=== PATIENT | female | born 1985 | race Caucasian/White ===

== ENCOUNTER 2016-10-11 11:25 | Emergency (ER) | payer OTHER ==
[~2016-10-11] VITALS: Ht 160 cm; Wt 93.0 kg
[~2016-10-11 11:25] MED LIST: AMIT50TA PO; GABA400C PO; LAMO100T5 PO; LAMO25TA5 PO; MECL25TA3 PO; METH4TAB2 PO; NAPR500T3 PO; PRED20TA PO; PREG100C PO; PROM12.56 PO; PROP40TA PO; SUMA1TAB2 PO; VALA500T5 PO
[2016-10-11] MEDS ORDERED: methylPREDNISolone SOD SUCC PF 125 MG/2 ML VIAL. IV ONE (12:30)
[2016-10-11] MEDS ORDERED: DIPHENHYDRAMINE 50 MG/ML VIAL IVP ONE (12:30)
[2016-10-11] MEDS ORDERED: FAMOTIDINE 20 MG/2 ML VIAL IVP ONE (12:30)
--- NOTE | 2016-10-11 13:03 | PHYS DOC ---
Past Medical History Past Medical History: Anxiety, Depression, Endometriosis Additional Past Medical Histor: "very mild case of CP", insomnia, endometriosis Past Surgical History: , Oophorectomy, Tubal ligation Additional Past Surgical Histo: extensions of heal cords, lap. for endometriosis, L. overy/tube removal Alcohol Use: None Drug Use: None Adult General Chief Complaint Chief Complaint: ALLERGIC REACTION HPI HPI Patient is a 31 year old female presents emergency room with multiple complaints secondary to taking Cymbalta. Patient began taking Cymbalta 3 days ago. She states that she has been experiencing numbness to her tongue, blurry vision, rash that she began taking the medication. She denies any airway closure or difficulty breathing. Patient states that she takes for Cymbalta for her depression. She states that she had a similar reaction with Zoloft and lavender. Patient did not take any Benadryl prior to being seen here. Review of Systems Review of Systems Constitutional: Denies fever or chills [] Eyes: Denies change in visual acuity, redness, or eye pain [] HENT: Denies nasal congestion or sore throat [] Respiratory: Denies cough or shortness of breath [] Cardiovascular: No additional information not addressed in HPI [] GI: Denies abdominal pain, nausea, vomiting, bloody stools or diarrhea [] : Denies dysuria or hematuria [] Musculoskeletal: Denies back pain or joint pain [] Integument: Denies rash or skin lesions [] Neurologic: Denies headache, focal weakness or sensory changes [] Endocrine: Denies polyuria or polydipsia [] Current Medications Current Medications Current Medications Medications (Trade) Dose Ordered Sig/Patria Start Time Stop Time Status Last Admin Dose Admin Diphenhydramine HCl (Benadryl) 25 mg 1X ONCE 10/11/16 12:30 10/11/16 12:31 DC 10/11/16 12:39 25 MG Famotidine (Pepcid) 20 mg 1X ONCE 10/11/16 12:30 10/11/16 12:31 DC 10/11/16 12:39 20 MG Methylprednisolone Sodium Succinate (Solu-Medrol 125mg Vial) 125 mg 1X ONCE 10/11/16 12:30 10/11/16 12:31 DC 10/11/16 12:39 125 MG Allergies Allergies Allergies Coded Allergies Type Severity Reaction Last Updated Verified Penicillins Allergy Intermediate hives 06/09/15 Yes azithromycin Allergy Intermediate hives 06/09/15 Yes lavender (Lavandula angustifolia) Allergy Intermediate sob 06/09/15 Yes progesterone Adverse Reaction Intermediate nausea and vomiting 06/09/15 Yes Physical Exam Physical Exam Constitutional: Well developed, well nourished, no acute distress, non-toxic appearance. [] HENT: Normocephalic, atraumatic, bilateral external ears normal, oropharynx moist, no oral exudates, nose normal. There is no angioedema. There is no swelling in the posterior oropharynx. Eyes: PERRLA, EOMI, conjunctiva normal, no discharge. [] Neck: Normal range of motion, no tenderness, supple, no stridor. Cardiovascular:Heart rate regular rhythm, no murmur [] Lungs & Thorax: Bilateral breath sounds clear to auscultation [] Abdomen: Bowel sounds normal, soft, no tenderness, no masses, no pulsatile masses. [] Skin: Warm, dry, no erythema, no rash. Malar rash. Back: No tenderness, no CVA tenderness. [] Extremities: No tenderness, no cyanosis, no clubbing, ROM intact, no edema. [] Neurologic: Alert and oriented X 3, normal motor function, normal sensory function, no focal deficits noted. [] Psychologic: Affect normal, judgement normal, mood normal. [] Current Patient Data Vital Signs Vital Signs Date Time Temp Pulse Resp B/P Pulse Ox O2 Delivery O2 Flow Rate FiO2 10/11/16 13:40 70 20 118/67 70 10/11/16 11:30 98.3 Room Air 98.3 EKG EKG [] Radiology/Procedures Radiology/Procedures [] Course & Med Decision Making Course & Med Decision Making Patient's had an uncomplicated stay here in the emergency department. There is never any evidence of angioedema. She is not expressing any shortness of breath. She is having an adverse reaction to the medication and not allergic reaction. Dragon Disclaimer Dragon Disclaimer This electronic medical record was generated, in whole or in part, using a voice recognition dictation system. Departure Departure Impression: Primary Impression: Adverse reaction to antidepressant drug Disposition: HOME, SELF-CARE Condition: IMPROVED Referrals: FAUSTINO LIANG APRN (PCP) Patient Instructions: Dystonic Reaction Additional Instructions: 1. You have any medication side effect and not an allergic reaction. 2. Stop taking the medication. There will be a period of time when the side effects will gradually resolve altogether. 3. Follow-up with your primary care doctor this coming week to discuss your visit to the emergency room here today. KAT PIRES Oct 11, 2016 13:03
[2016-10-11 13:40] VITALS: BP 118/67
== END 2016-10-11 14:02 | disposition home or self-care (01) ==
LOC: ER 11:25
DX: T43.295A Adverse effect of other antidepressants, initial encounter (principal); L25.8 Unspecified contact dermatitis due to other agents; R20.0 Anesthesia of skin; H53.8 Other visual disturbances; G47.00 Insomnia, unspecified; Z88.0 Allergy status to penicillin; Z88.1 Allergy status to other antibiotic agents; Z88.8 Allergy status to other drugs, medicaments and biological substances; Y92.89 Other specified places as the place of occurrence of the external cause
CPT/HCPCS: 96374; 96375; 99284; J1200; J2930; S0028

== ENCOUNTER 2016-12-20 12:54 | Emergency (ER) | payer MEDICAID, OTHER ==
[~2016-12-20] VITALS: Ht 160 cm; Wt 96.6 kg
[2016-12-20 13:19] LABS: BILIRUBIN,URINE NEGATIVE (NEG); GLUCOSE,URINE NEGATIVE (NEG); NITRITE,URINE NEGATIVE (NEG); PH,URINE 6.5; PROTEIN,URINE NEGATIVE (NEG-TRACE)
[2016-12-20 13:28] LABS: BACTERIA,URINE 0 /HPF (0-FEW); RBC,URINE TNTC /HPF (0-2); SQUAMOUS EPITHELIAL CELL,UR MOD /LPF; WBC,URINE 20-40 /HPF (0-4)
[2016-12-20] MEDS ORDERED: diphenhydrAMINE 50 MG/ML VIAL IVP ONE (13:45)
[2016-12-20] MEDS ORDERED: DEXAMETHASONE SOD PHOS 20 MG/5 ML VIAL. IV ONE (13:45)
[2016-12-20] MEDS ORDERED: KETOROLAC TROMETHAMINE 30 MG/ML INJ. IV ONE (13:45)
[2016-12-20] MEDS ORDERED: IV NORMAL SALINE 1000ML BAG 1,000 ML IV ONE (13:45)
[2016-12-20] MEDS ORDERED: METOCLOPRAMIDE HCL 10 MG/2 ML VIAL. IV ONE (13:45)
--- NOTE | 2016-12-20 14:31 | PHYS DOC ---
Past Medical History Past Medical History: Anxiety, Depression, Endometriosis, Migraines Additional Past Medical Histor: "very mild case of CP", insomnia, endometriosis Past Surgical History: , Oophorectomy, Tubal ligation Additional Past Surgical Histo: extensions of heal cords, lap. for endometriosis, L. overy/tube removal Alcohol Use: None Drug Use: None Adult General Chief Complaint Chief Complaint: HEADACHE HPI HPI This is a 31-year-old female who's had 2-3 days of progressively worsening headache with associated photo phobia and nausea with no vomiting. Patient denies any fever or chills. She states her current pain is a 9 out of 10 and is somewhat generalized. She denies any significant neck tenderness and she does describe some scapular and trapezius tenderness but states this is likely work related. She is fully alert and oriented at this time. She is afebrile and nontoxic upon my initial evaluation. She states she has history of migraine headaches but has not had one this severe for 6 years. Patient started her menstrual cycle yesterday. She denies any significant past medical history. Review of Systems Review of Systems Constitutional: Denies fever or chills [] Eyes: Denies change in visual acuity, redness, or eye pain [] HENT: Denies nasal congestion or sore throat [] Respiratory: Denies cough or shortness of breath [] Cardiovascular: No additional information not addressed in HPI [] GI: Denies abdominal pain, nausea, vomiting, bloody stools or diarrhea [] : Denies dysuria or hematuria [] Musculoskeletal: Denies back pain or joint pain [] Integument: Denies rash or skin lesions [] Neurologic: Has headache, denies focal weakness or sensory changes [] Endocrine: Denies polyuria or polydipsia [] Current Medications Current Medications Current Medications Medications (Trade) Dose Ordered Sig/Patria Start Time Stop Time Status Last Admin Dose Admin Dexamethasone Sodium Phosphate (Decadron) 10 mg 1X ONCE 12/20/16 13:45 12/20/16 13:49 DC 12/20/16 14:06 10 MG Diphenhydramine HCl (Benadryl) 25 mg 1X ONCE 12/20/16 13:45 12/20/16 13:49 DC 12/20/16 14:07 25 MG Ketorolac Tromethamine (Toradol) 30 mg 1X ONCE 12/20/16 13:45 12/20/16 13:49 DC 12/20/16 14:04 30 MG Metoclopramide HCl (Reglan) 10 mg 1X ONCE 12/20/16 13:45 12/20/16 13:49 DC 12/20/16 14:05 10 MG Sodium Chloride 1,000 ml @ 1,000 mls/hr 1X ONCE 12/20/16 13:45 12/20/16 14:44 DC 12/20/16 14:04 1,000 MLS/HR Allergies Allergies Allergies Coded Allergies Type Severity Reaction Last Updated Verified Penicillins Allergy Intermediate hives 06/09/15 Yes azithromycin Allergy Intermediate hives 06/09/15 Yes lavender (Lavandula angustifolia) Allergy Intermediate sob 06/09/15 Yes progesterone Adverse Reaction Intermediate nausea and vomiting 06/09/15 Yes Physical Exam Physical Exam Constitutional: Well developed, well nourished, no acute distress, non-toxic appearance. [] HENT: Normocephalic, atraumatic, bilateral external ears normal, oropharynx moist, no oral exudates, nose normal. [] Eyes: PERRLA, EOMI, conjunctiva normal, no discharge. [] Neck: Normal range of motion, no tenderness, supple, no stridor. [] Cardiovascular:Heart rate regular rhythm, no murmur [] Lungs & Thorax: Bilateral breath sounds clear to auscultation [] Abdomen: Bowel sounds normal, soft, no tenderness, no masses, no pulsatile masses. [] Skin: Warm, dry, no erythema, no rash. [] Back: No tenderness, no CVA tenderness. [] Extremities: No tenderness, no cyanosis, no clubbing, ROM intact, no edema. [] Neurologic: Alert and oriented X 3, normal motor function, normal sensory function, no focal deficits noted. [] Psychologic: Affect normal, judgement normal, mood normal. [] Current Patient Data Vital Signs Vital Signs Date Time Temp Pulse Resp B/P (MAP) Pulse Ox O2 Delivery O2 Flow Rate FiO2 12/20/16 14:55 85 16 115/65 (82) 99 Room Air 12/20/16 13:05 98.1 98.1 Lab Values Laboratory Tests Test 12/20/16 12:16 12/20/16 13:09 POC Urine HCG, Qualitative Hcg negative (Negative) Urine Collection Type Unknown Urine Color Yellow Urine Clarity Clear Urine pH 6.5 Urine Specific [place] 1.020 Urine Protein Negative mg/dL (NEG-TRACE) Urine Glucose (UA) Negative mg/dL (NEG) Urine Ketones (Stick) Negative mg/dL (NEG) Urine Blood Large (NEG) Urine Nitrite Negative (NEG) Urine Bilirubin Negative (NEG) Urine Urobilinogen Dipstick 1.0 mg/dL (0.2 mg/dL) Urine Leukocyte Esterase Moderate (NEG) Urine RBC Tntc /HPF (0-2) Urine WBC 20-40 /HPF (0-4) Urine Squamous Epithelial Cells Mod /LPF Urine Bacteria 0 /HPF (0-FEW) EKG EKG [] Radiology/Procedures Radiology/Procedures [] Course & Med Decision Making Course & Med Decision Making Pertinent Labs and Imaging studies reviewed. (See chart for details) This 31-year-old female is exhibiting symptoms of migraine type headache that she's had before. She denies any sudden onset of headache. She says the intensity has gradually worsened the last several days despite taking Tylenol and Motrin. Patient does not have any signs of systemic illness. Typical migraine cocktail of IV Toradol, IV Reglan, IV Benadryl, IV Decadron and a fluid bolus will be given and the patient will be reassessed. On my reassessment , the patient's and has mildly improved with traditional migraine cocktail. The patient feels improved and would like to go home and rest for the next 24 hours. Return precautions were provided and the patient is to return if her headache should not improve or if she develops any new symptoms such as fever or worsening nausea or vomiting or changes in her behavior. Patient is very agreeable with this plan and discharged without incident. Dragon Disclaimer Dragon Disclaimer This electronic medical record was generated, in whole or in part, using a voice recognition dictation system. Departure Departure Impression: Primary Impression: Headache Disposition: 01 HOME, SELF-CARE Admitting Physician: Other Condition: IMPROVED Referrals: FAUSTINO LIANG APRN (PCP) Patient Instructions: Migraine Headache, [id number] Additional Instructions: Please continue to drink plenty of fluids and get rest for the next 24 hours. Take tylenol or motrin for your pain. Return to the ER if you develop any worsening of your symptoms. CARA VALERO DO December 20, 2016 14:31
[2016-12-20 14:55] VITALS: BP 115/65
== END 2016-12-20 14:57 | disposition home or self-care (01) ==
LOC: ER 12:54
DX: R51 Headache (principal); G43.909 Migraine, unspecified, not intractable, without status migrainosus; F32.9 Major depressive disorder, single episode, unspecified; F41.9 Anxiety disorder, unspecified; G47.00 Insomnia, unspecified; Z88.0 Allergy status to penicillin; Z88.1 Allergy status to other antibiotic agents; Z88.8 Allergy status to other drugs, medicaments and biological substances; Z91.048 Other nonmedicinal substance allergy status
CPT/HCPCS: 81001; 84703; 87086; 96361; 96374; 96375; 99284; J1100; J1200; J1885; J2765; J7030; 81025; 87186

== ENCOUNTER 2017-01-15 21:19 | Emergency (ER) | payer MEDICAID, OTHER ==
[~2017-01-15] VITALS: Ht 160 cm; Wt 95.3 kg
[2017-01-15] MEDS ORDERED: diphenhydrAMINE 50 MG/ML VIAL IVP ONE (22:00)
[2017-01-15] MEDS ORDERED: DEXAMETHASONE SOD PHOS 20 MG/5 ML VIAL. IV ONE (22:00)
[2017-01-15] MEDS ORDERED: PROCHLORPERAZINE 10 MG/2 ML VIAL. IV ONE (22:00)
[2017-01-15] MEDS ORDERED: KETOROLAC TROMETHAMINE 30 MG/ML INJ. IV ONE (22:00)
--- NOTE | 2017-01-15 22:01 | PHYS DOC ---
Past Medical History Past Medical History: Anxiety, Depression, Endometriosis, Migraines Additional Past Medical Histor: "very mild case of CP", insomnia, endometriosis Past Surgical History: , Oophorectomy, Tubal ligation Additional Past Surgical Histo: extensions of heal cords, lap. for endometriosis, L. ovary/tube removal Alcohol Use: None Drug Use: None Adult General Chief Complaint Chief Complaint: HEADACHE HPI HPI Patient is a 31 year old female who presents with gradual onset headache, mostly on the left, associated with photophobia and phonophobia and nausea. States headache symptoms are similar to prior migraine symptoms. States she does have some pressure in bilateral ears, greater on the left than the right. She also has loose diarrhea today. She denies vision changes, neck pain or manipulation, numbness, tingling, weakness, abdominal pain, fever or chills, emesis, chest pain, back pain. Review of Systems Review of Systems Constitutional: Denies fever or chills [] Eyes: Denies change in visual acuity, redness, or eye pain [] HENT: Denies nasal congestion or sore throat [] Respiratory: Denies cough or shortness of breath [] Cardiovascular: No additional information not addressed in HPI [] GI: Denies abdominal pain, nausea, vomiting, bloody stools [] : Denies dysuria or hematuria [] Musculoskeletal: Denies back pain or joint pain [] Integument: Denies rash or skin lesions [] Neurologic: Denies focal weakness or sensory changes [] Endocrine: Denies polyuria or polydipsia [] Current Medications Current Medications Current Medications Medications (Trade) Dose Ordered Sig/[facility] Start Time Stop Time Status Last Admin Dose Admin Dexamethasone Sodium Phosphate (Decadron) 10 mg 1X ONCE 01/15/17 22:00 01/15/17 22:01 DC 01/15/17 21:59 10 MG Diphenhydramine HCl (Benadryl) 25 mg 1X ONCE 01/15/17 22:00 01/15/17 22:01 DC 01/15/17 22:02 25 MG Ketorolac Tromethamine (Toradol) 10 mg 1X ONCE 01/15/17 22:00 01/15/17 22:01 DC 01/15/17 22:00 10 MG Prochlorperazine Edisylate (Compazine) 10 mg 1X ONCE 01/15/17 22:00 01/15/17 22:01 DC 01/15/17 22:03 10 MG Allergies Allergies Allergies Coded Allergies Type Severity Reaction Last Updated Verified Penicillins Allergy Intermediate hives 06/09/15 Yes azithromycin Allergy Intermediate hives 06/09/15 Yes lavender (Lavandula angustifolia) Allergy Intermediate sob 06/09/15 Yes progesterone Adverse Reaction Intermediate nausea and vomiting 06/09/15 Yes Physical Exam Physical Exam Constitutional: Well developed, well nourished, no acute distress, non-toxic appearance. [] HENT: Normocephalic, atraumatic, bilateral TMs normal, oropharynx moist, no oral exudates, nose normal. [] Eyes: PERRLA, EOMI, conjunctiva normal, no discharge. [] Neck: Normal range of motion, no tenderness, supple. [] Cardiovascular:Heart rate regular rhythm [] Lungs & Thorax: Bilateral breath sounds clear to auscultation [] Abdomen: Bowel sounds normal, soft, no tenderness. [] Skin: Warm, dry, no erythema, no rash. [] Back: Normal range of motion. [] Extremities: No tenderness, ROM intact, no edema. [] Neurologic: Alert and oriented X 3, normal motor function, normal sensory function, no focal deficits noted, cranial nerves II through XII intact. [] Psychologic: Affect normal, judgement normal, mood normal. [] Current Patient Data Vital Signs Vital Signs Date Time Temp Pulse Resp B/P (MAP) Pulse Ox O2 Delivery O2 Flow Rate FiO2 01/15/17 21:48 98.1 89 18 139/72 (94) 99 Room Air 98.1 Course & Med Decision Making Course & Med Decision Making She is feeling much better after medications. Will refer to neurology for increased frequency of headache/migraine symptoms. Return precautions given. She understands and agrees with plan. Dragon Disclaimer Dragon Disclaimer This electronic medical record was generated, in whole or in part, using a voice recognition dictation system. Departure Departure Impression: Primary Impression: Headache Disposition: 01 HOME, SELF-CARE Condition: STABLE Referrals: FAUSTINO LIANG APRN (PCP) PIEDAD RAMIREZ MD Patient Instructions: Recurrent Migraine Headache, [id number] Additional Instructions: Follow-up with your primary care doctor and neurology clinic. Please call for appointments. Return for any concerns. Problem Qualifiers Primary Impression: Headache Headache type: unspecified Headache chronicity pattern: episodic headache Intractability: not intractable Qualified Codes: R51 - Headache Simón BERUMEN MD January 15, 2017 22:01
[2017-01-15 23:00] VITALS: BP 109/55
== END 2017-01-15 23:10 | disposition home or self-care (01) ==
LOC: ER 21:19
DX: R51 Headache (principal); H53.149 Visual discomfort, unspecified; R11.0 Nausea; F41.9 Anxiety disorder, unspecified; F32.9 Major depressive disorder, single episode, unspecified; G43.909 Migraine, unspecified, not intractable, without status migrainosus; G47.00 Insomnia, unspecified; Z90.721 Acquired absence of ovaries, unilateral; Z98.51 Tubal ligation status; Z88.1 Allergy status to other antibiotic agents; Z88.0 Allergy status to penicillin; Z88.8 Allergy status to other drugs, medicaments and biological substances
CPT/HCPCS: 96374; 96375; 99284; J0780; J1100; J1200; J1885

== ENCOUNTER → 2017-03-17 | Outpatient (CLI) | payer OTHER ==
[~2017-03-17] MED LIST changes: +ESCITALOPRAM OX10 MG PO; +GADOBUTROL 10 MMOL/10 ML VIAL IV ONE; +SUMA100T4 PO
--- NOTE | 2017-03-17 11:13 | KCIC ---
INDICATION: Migraines. History of myelitis. Numbness. TECHNIQUE: Sagittal T1, axial T1, axial T2, axial FLAIR, axial T2 gradient, diffusion imaging with ADC map, postcontrast axial, and postcontrast coronal sequences are provided. 9 mL of intravenous Gadavist was administered without complication. No comparison MRI brain is available. FINDINGS: The ventricles and sulci are within normal limits for age. There is no acute intracranial hemorrhage or extra-axial fluid collection. There is no mass effect or midline shift. There is no white matter signal abnormality. There is no restricted diffusion to suggest an acute infarct. Cervical medullary junction is unremarkable. Pituitary and suprasellar region are unremarkable. Clival marrow signal is preserved. Intracranial flow voids are preserved. There is pansinus mucosal thickening. There is an air-fluid level in the left maxillary sinus. Mastoid air cells are opacified. IMPRESSION: No acute intracranial findings. Electronically signed by: Jim Neff MD (03/17/2017 11:09 AM) [id number]
--- NOTE | 2017-03-17 11:18 | KCIC ---
INDICATION: Migraines. History of myelitis. TECHNIQUE: Sagittal T1, sagittal T2, sagittal STIR, sagittal postcontrast, axial T1, axial T2, axial T2 gradient, and axial postcontrast sequences are provided. A single dose of 9 mL of intravenous Gadavist was administered without complication. Comparison study is from August 03, 2013. FINDINGS: Current study is mildly degraded by motion. The subtle signal abnormality in the cervical cord at C2 probably persists. No signal abnormality within the remainder of the cervical cord is apparent. There is no cord expansion or thinning. There is no pathologic enhancement within the cord. Cervicomedullary junction is unremarkable. There is no malalignment. There is no marrow edema. There is no worrisome marrow lesion. There is no high-grade canal or foraminal compromise at any level. There is minimal degenerative disc disease at C5-C6 and C6-C7. IMPRESSION: 1. Subtle cord hyperintensity at C2 probably is unchanged allowing for motion. No new signal abnormality within the cervical cord is identified. Small area of myelomalacia is a possibility. 3. No high-grade canal or foraminal compromise at any level. Electronically signed by: Jim Neff MD (03/17/2017 11:14 AM) [id number]
== END | disposition home or self-care (01) ==
LOC: KCIC MRI 08:57
PROVIDERS: ATTEND Psychiatry & Neurology Neurology with Special Qualifications in Child Neurology
DX: G43.009 Migraine without aura, not intractable, without status migrainosus (principal); Z86.69 Personal history of other diseases of the nervous system and sense organs; R07.9 Chest pain, unspecified; R20.0 Anesthesia of skin
CPT/HCPCS: 70553; 72156; A9585

== ENCOUNTER → 2017-03-19 | Outpatient (CLI) | payer OTHER ==
[~2017-03-19] MED LIST changes: -GADOBUTROL 10 MMOL/10 ML VIAL IV ONE
--- NOTE | 2017-03-19 13:16 | KCIC ---
EXT NON VASC RIGHT, ULTRASOUND SOFT TISSUE RIGHT KNEE Clinical Indication: Right knee pain x4-5 months. Comparison: None. TECHNIQUE: Real-time ultrasound imaging in the region of the right knee is performed. Findings: There is normal compressibility and color flow and augmentation of the right popliteal vein. The right lesser saphenous vein is patent. No fluid collection in the popliteal fossa is identified. There is a sliver of fluid lateral and anterior to the knee measuring 31 x 4 x 15 mm. IMPRESSION: There is no Ramsay's cyst. Electronically signed by: Gualberto Tracy MD (03/19/2017 1:13 PM) [id number]
== END | disposition home or self-care (01) ==
LOC: KCIC US 12:19
PROVIDERS: ATTEND Nurse Practitioner Family
DX: M25.561 Pain in right knee (principal)
CPT/HCPCS: 76881

== ENCOUNTER 2017-04-22 12:09 | Emergency (ER) | payer OTHER ==
[~2017-04-22] VITALS: Ht 160 cm; Wt 88.5 kg
[2017-04-22 14:00] VITALS: BP 159/103
--- NOTE | 2017-04-22 14:53 | RAD ---
Right shoulder, 3 views, 04/22/2017: History: Fall, injury No fracture or dislocation is identified. The periarticular soft tissues are unremarkable. IMPRESSION: No significant right shoulder abnormality is detected. Right wrist, 3 views, 04/22/2017: No fracture or dislocation is identified. There is mild subcutaneous edema. IMPRESSION: No acute bony abnormality is detected.
--- NOTE | 2017-04-22 14:57 | RAD ---
CT of the head without contrast, 04/22/2017: History: Fall, head injury, pain The ventricles are within normal limits in size. There is no shift of the midline structures. There is no evidence of acute intracranial hemorrhage or mass effect. There is mild mucosal thickening in the right maxillary and ethmoid sinuses and to a greater degree in the right frontal sinus. There is partial opacification of the mastoid sinuses, worse on the right. More extensive inflammatory changes were present in the paranasal and mastoid sinuses on the MR study of 03/17/2017. IMPRESSION: No acute intracranial abnormality is detected. PQRS Compliance Statement: One or more of the following individualized dose reduction techniques were utilized for this examination: 1. Automated exposure control 2. Adjustment of the mA and/or kV according to patient size 3. Use of iterative reconstruction technique
--- NOTE | 2017-04-22 15:05 | PHYS DOC ---
Past Medical History Past Medical History: Anxiety, Depression, Endometriosis, Migraines Additional Past Medical Histor: "very mild case of CP", insomnia, endometriosis Past Surgical History: , Oophorectomy, Tubal ligation, Other Additional Past Surgical Histo: extensions of heal cords, lap. for endometriosis, L. ovary/tube removal Alcohol Use: None Drug Use: None Adult General Chief Complaint Chief Complaint: MECHANICAL FALL HPI HPI Patient is a 31 year old female presents to the emergency department stating that she was trying to get some ice on the refrigerator when she went to move back there was a child her child was underneath her feet and she fell backwards. She states that she tried to grab a hold of the freezer although something broke in the freezer and she still fell backwards hitting her head on a table. Patient is unsure if she had any LOC. Patient states she is having right shoulder pain and right wrist pain. Patient is right hand dominant. Review of Systems Review of Systems Constitutional: Denies fever or chills [] Eyes: Denies change in visual acuity, redness, or eye pain [] HENT: Denies nasal congestion or sore throat [] Respiratory: Denies cough or shortness of breath [] Cardiovascular: No additional information not addressed in HPI [] GI: Denies abdominal pain, nausea, vomiting, bloody stools or diarrhea [] : Denies dysuria or hematuria [] Musculoskeletal: back pain. Right shoulder and right wrist pain. Integument: Denies rash or skin lesions [] Neurologic: headache, deniesfocal weakness or sensory changes [] Endocrine: Denies polyuria or polydipsia [] Current Medications Current Medications Current Medications Medications (Trade) Dose Ordered Sig/[facility] Start Time Stop Time Status Last Admin Dose Admin Cyclobenzaprine HCl (Flexeril) 10 mg 1X ONCE 04/22/17 15:15 04/22/17 15:16 Ibuprofen (Motrin) 800 mg 1X ONCE 04/22/17 15:15 04/22/17 15:16 Allergies Allergies Allergies Coded Allergies Type Severity Reaction Last Updated Verified Penicillins Allergy Intermediate hives 06/09/15 Yes azithromycin Allergy Intermediate hives 06/09/15 Yes lavender (Lavandula angustifolia) Allergy Intermediate sob 06/09/15 Yes progesterone Adverse Reaction Intermediate nausea and vomiting 06/09/15 Yes Physical Exam Physical Exam Constitutional: Well developed, well nourished, no acute distress, non-toxic appearance. [] HENT: Normocephalic, atraumatic, bilateral external ears normal, oropharynx moist, no oral exudates, nose normal. [] Eyes: PERRLA, EOMI, conjunctiva normal, no discharge. [] Neck: Normal range of motion, no tenderness, supple, no stridor. [] Cardiovascular:Heart rate regular rhythm, no murmur [] Lungs & Thorax: Bilateral breath sounds clear to auscultation [] Skin: Warm, dry, no erythema, no rash. [] Back: No cervical spine, thoracic or lumbar spine tenderness, no crepitus, no deformity, no step-offs noted. Extremities: Right shoulder and right wrist tenderness, decrease ROM of the right shoulder. No cyanosis, no clubbing, ROM intact, no edema. [] Neurologic: Alert and oriented X 3, normal motor function, normal sensory function, no focal deficits noted. [] Psychologic: Affect normal, judgement normal, mood normal. [] Current Patient Data Vital Signs Vital Signs Date Time Temp Pulse Resp B/P (MAP) Pulse Ox O2 Delivery O2 Flow Rate FiO2 04/22/17 14:00 98.3 68 18 100 Room Air 98.3 Lab Values Laboratory Tests Test 04/22/17 13:46 POC Urine HCG, Qualitative Hcg negative (Negative) EKG EKG [] Radiology/Procedures Radiology/Procedures [][facility] [address] [place] [address] IMAGING REPORT Signed PATIENT: DARREL GRANDE ACCOUNT: [id number] : 1985 LOCATION: ER AGE: 31 SEX: F EXAM STATUS: REG ER ORD. PHYSICIAN: BARRIE METCALF APRN REASON: fall PROCEDURE: CT HEAD WO CONTRAST CT of the head without contrast, 04/22/2017: History: Fall, head injury, pain The ventricles are within normal limits in size. There is no shift of the midline structures. There is no evidence of acute intracranial hemorrhage or mass effect. There is mild mucosal thickening in the right maxillary and ethmoid sinuses and to a greater degree in the right frontal sinus. There is partial opacification of the mastoid sinuses, worse on the right. More extensive inflammatory changes were present in the paranasal and mastoid sinuses on the MR study of 03/17/2017. IMPRESSION: No acute intracranial abnormality is detected. PQRS Compliance Statement: One or more of the following individualized dose reduction techniques were utilized for this examination: 1. Automated exposure control 2. Adjustment of the mA and/or kV according to patient size 3. Use of iterative reconstruction technique DICTATED and SIGNED BY: JAMARCUS ALATORRE MD DATE: 04/22/17 8263 CC: BARRIE METCALF APRN; NON,STAFF; FAUSTINO LIANG APRN ~ [facility] [address] [place], [place] [id number] IMAGING REPORT Signed PATIENT: DARREL GRANDE ACCOUNT: [id number] : 1985 LOCATION: ER AGE: 31 SEX: F EXAM [id number] STATUS: REG ER ORD. PHYSICIAN: BARRIE METCALF APRN REASON: fall PROCEDURE: SHOULDER 2+V RIGHT; WRIST 3V RIGHT Right shoulder, 3 views, 04/22/2017: History: Fall, injury No fracture or dislocation is identified. The periarticular soft tissues are unremarkable. IMPRESSION: No significant right shoulder abnormality is detected. Right wrist, 3 views, 04/22/2017: No fracture or dislocation is identified. There is mild subcutaneous edema. IMPRESSION: No acute bony abnormality is detected. DICTATED and SIGNED BY: JAMARCUS ALATORRE MD DATE: 04/22/17 1441 CC: BARRIE METCALF APRN; NON,STAFF; FAUSTINO LIANG APRN ~ Course & Med Decision Making Course & Med Decision Making Pertinent Labs and Imaging studies reviewed. (See chart for details) CT scan negative, x-ray of the right shoulder, right wrist are negative for any bony abnormalities. Patient was provided with ibuprofen and Flexeril here in the emergency department. Recommended ice packs on 20 minutes several times today patient will be placed in a sling with recommendations to follow-up with orthopedic within the next week. Recommended the Flexeril at home she was instructed this medication will cause drowsiness do not take any be alert and oriented. Signs and symptoms to return back to emergency department been provided. Patient agrees with discharge instructions, treatment regimens and follow-up recommendations. All questions and concerns been answered at patient' s bedside. [] Dragon Disclaimer Dragon Disclaimer This electronic medical record was generated, in whole or in part, using a voice recognition dictation system. Departure Departure Impression: Primary Impression: Fall Additional Impressions: Closed head injury Right shoulder pain Right wrist pain Disposition: HOME, SELF-CARE Condition: STABLE Referrals: FAUSTINO LIANG APRN (PCP) CHIP RENE MD Patient Instructions: Arm Sling Use-Brief, Fall Prevention and Home Safety, [id number], Head Injury, Adult, [id number], Shoulder Sprain, Wrist Pain, [id number] Additional Instructions: Your x-rays were negative for any bony abnormalities. Your CT scan was negative as well. Ibuprofen 800 mg every 8 hours. Flexeril will cause drowsiness do not take any be alert and oriented. Ice packs on 20 minutes off 20 minutes several times a day. Follow-up with orthopedic within the next week. Return back to emergency department sign symptoms of become worse. Scripts Cyclobenzaprine Hcl (CYCLOBENZAPRINE HCL) 10 Mg Tablet 1 TAB PO TID Y for MUSCLE SPASMS, #30 TAB Prov: BARRIE METCALF APRN 04/22/17 Problem Qualifiers Primary Impression: Fall Encounter type: initial encounter Qualified Codes: W19.XXXA - Unspecified fall, initial encounter Additional Impressions: Closed head injury Encounter type: initial encounter Qualified Codes: S09.90XA - Unspecified injury of head, initial encounter Right shoulder pain Chronicity: acute Qualified Codes: M25.511 - Pain in right shoulder BARRIE METCALF APRN Apr 22, 2017 15:05
[2017-04-22] MEDS ORDERED: CYCLOBENZAPRINE 10 MG TABLET. PO ONE (15:15)
[2017-04-22] MEDS ORDERED: IBUPROFEN 800 MG TABLET. PO ONE (15:15)
[2017-04-22] MEDS ORDERED: CYCL10TA2 PO (15:23)
== END 2017-04-22 15:31 | disposition home or self-care (01) ==
LOC: ER 12:09
DX: S09.90XA Unspecified injury of head, initial encounter (principal); M25.511 Pain in right shoulder; M25.531 Pain in right wrist; G43.909 Migraine, unspecified, not intractable, without status migrainosus; Z88.0 Allergy status to penicillin; Z88.1 Allergy status to other antibiotic agents; Z88.8 Allergy status to other drugs, medicaments and biological substances; W18.39XA Other fall on same level, initial encounter; Y93.89 Activity, other specified; Y99.8 Other external cause status; Y92.89 Other specified places as the place of occurrence of the external cause
CPT/HCPCS: 70450; 73030; 73110; 81025; 99284-25

== ENCOUNTER 2017-06-03 18:26 | Emergency (ER) | payer OTHER ==
[~2017-06-03 18:26] MED LIST changes: +CYCL10TA2 PO; -NAPR500T3 PO; +NAPR500T4 PO
[2017-06-03] MEDS ORDERED: KETOROLAC 30 MG/ML INJ. IV ONE (19:30)
--- NOTE | 2017-06-03 19:35 | PHYS DOC ---
Past Medical History Past Medical History: Anxiety, Depression, Endometriosis, Migraines Additional Past Medical Histor: "very mild case of CP", insomnia, endometriosis Past Surgical History: , Oophorectomy, Tubal ligation, Other Additional Past Surgical Histo: extensions of heal cords, lap. for endometriosis, L. ovary/tube removal Alcohol Use: None Drug Use: None Adult General Chief Complaint Chief Complaint: ALLERGIC REACTION HPI HPI Patient is a 31 year old F who presents with chest pain. Patient was seen yesterday at [facility] for allergic reaction a lavender in which she started having chest pain, tongue swelling, difficulty breathing, difficult swallowing. Patient was treated last night with prednisone, Benadryl, Pepcid and discharged home with prednisone and Pepcid and Bentyl to take Benadryl 3 times a day. Today the patient states she's having worsening chest pain that is central rating to her back. Patient has no history or risk factors for PE. Patient has no cardiac history. Patient has no family history of connective tissue disorders that would put her at risk for aortic dissection. Patient denies any fevers. Patient states the chest pain is worse when she stands up and is not related to exertion. Pt has some patient has some associated shortness of breath with this. Patient has no other complaints. Review of Systems Review of Systems GEN: Denies fevers, chills, sweats HEENT: Denies blurred vision, sore throat CV: Chest pain RESP: Shortness of breath GI: Denies n/v/d NEURO: Denies confusion, dizziness MSK: Denies weakness, joint pain/swelling Current Medications Current Medications Current Medications Medications (Trade) Dose Ordered Sig/[facility] Start Time Stop Time Status Last Admin Dose Admin Fentanyl Citrate (Fentanyl 2ml Vial) 50 mcg 1X ONCE 06/03/17 20:45 06/03/17 20:46 DC 06/03/17 20:46 50 MCG Ketorolac Tromethamine (Toradol) 30 mg 1X ONCE 06/03/17 19:30 06/03/17 19:32 DC 06/03/17 19:59 30 MG Multi-Ingredient Mouthwash/Gargle (Gi Cocktail Single Dose) 15 ml 1X ONCE 06/03/17 20:45 06/03/17 20:46 DC 06/03/17 20:49 15 ML Allergies Allergies Allergies Coded Allergies Type Severity Reaction Last Updated Verified Penicillins Allergy Intermediate hives 06/09/15 Yes azithromycin Allergy Intermediate hives 06/09/15 Yes lavender (Lavandula angustifolia) Allergy Intermediate sob 06/09/15 Yes progesterone Adverse Reaction Intermediate nausea and vomiting 06/09/15 Yes Physical Exam Physical Exam GEN.: Mild distress. Alert and oriented. HEENT: Head is normocephalic, atraumatic NECK: Supple. LUNGS: CTAB. HEART: RRR, S1, S2 present. Peripheral pulses intact ABDOMEN: Soft, nontender. Positive bowel sounds. EXTREMITIES: Without any cyanosis. NEUROLOGIC: Normal speech, normal tone PSYCHIATRIC: Normal affect, normal mood. SKIN: No ulcerations Current Patient Data Vital Signs Vital Signs Date Time Temp Pulse Resp B/P (MAP) Pulse Ox O2 Delivery O2 Flow Rate FiO2 06/03/17 20:25 72 117/86 (96) 98 06/03/17 18:47 98.7 18 Room Air 98.7 Lab Values Laboratory Tests Test 06/03/17 19:30 06/03/17 19:40 06/03/17 19:43 White Blood Count 15.0 x10^3/uL (4.0-11.0) H Red Blood Count 4.52 x10^6/uL (3.50-5.40) Hemoglobin 11.2 g/dL (12.0-15.5) L Hematocrit 34.2 % (36.0-47.0) L Mean Corpuscular Volume 76 fL (79-100) L Mean Corpuscular Hemoglobin 25 pg (25-35) Mean Corpuscular Hemoglobin Concent 33 g/dL (31-37) Red Cell Distribution Width 15.5 % (11.5-14.5) H Platelet Count 477 x10^3/uL (140-400) H Neutrophils (%) (Auto) 81 % (31-73) H Lymphocytes (%) (Auto) 13 % (24-48) L Monocytes (%) (Auto) 6 % (0-9) Eosinophils (%) (Auto) 0 % (0-3) Basophils (%) (Auto) 0 % (0-3) Neutrophils # (Auto) 12.0 x10^3uL (1.8-7.7) H Lymphocytes # (Auto) 2.0 x10^3/uL (1.0-4.8) Monocytes # (Auto) 1.0 x10^3/uL (0.0-1.1) Eosinophils # (Auto) 0.0 x10^3/uL (0.0-0.7) Basophils # (Auto) 0.0 x10^3/uL (0.0-0.2) D-Dimer (Nat) < 0.27 ug/mlFEU Sodium Level 140 mmol/L (136-145) Potassium Level 4.2 mmol/L (3.5-5.1) Chloride Level 104 mmol/L (98-107) Carbon Dioxide Level 26 mmol/L (21-32) Anion Gap 10 (6-14) Blood Urea Nitrogen 11 mg/dL (7-20) Creatinine 0.7 mg/dL (0.6-1.0) Estimated GFR (Cockcroft-Gault) 97.0 BUN/Creatinine Ratio 16 (6-20) Glucose Level 99 mg/dL (70-99) Calcium Level 9.6 mg/dL (8.5-10.1) Total Bilirubin 0.1 mg/dL (0.2-1.0) L Aspartate Amino Transferase (AST) 9 U/L (15-37) L Alanine Aminotransferase (ALT) 18 U/L (14-59) Alkaline Phosphatase 94 U/L (46-116) Troponin I Quantitative < 0.017 ng/mL (0.000-0.055) Total Protein 7.8 g/dL (6.4-8.2) Albumin 3.9 g/dL (3.4-5.0) Albumin/Globulin Ratio 1.0 (1.0-1.7) Urine Collection Type Unknown Urine Color Red Urine Clarity Turbid Urine pH 5.5 Urine Specific [place] >=1.030 Urine Protein 100 mg/dL (NEG-TRACE) Urine Glucose (UA) Negative mg/dL (NEG) Urine Ketones (Stick) Trace mg/dL (NEG) Urine Blood Large (NEG) Urine Nitrite Positive (NEG) Urine Bilirubin Moderate (NEG) Urine Urobilinogen Dipstick 0.2 mg/dL (0.2 mg/dL) Urine Leukocyte Esterase Moderate (NEG) Urine RBC Tntc /HPF (0-2) Urine WBC 5-10 /HPF (0-4) Urine Squamous Epithelial Cells Few /LPF Urine Bacteria Moderate /HPF (0-FEW) POC Urine HCG, Qualitative Hcg negative (Negative) Laboratory Tests 06/03/17 19:30 Laboratory Tests 06/03/17 19:30 EKG EKG 1839: EKG shows normal sinus rhythm rate of 84 no STEMI[] Radiology/Procedures Radiology/Procedures [] Course & Med Decision Making Course & Med Decision Making Pertinent Labs and Imaging studies reviewed. (See chart for details) ED course: Patient was seen and examined emergency room cardiac workup was ordered with a d -dimer, I do not feel the patient is having persistent allergic reaction symptoms warranting further epinephrine or prednisone administration at this time. The patient's chief complaint is chest pain and work her up for the chest pain at this time. 2038: Updated patient on lab results and x-ray findings. Patient still having some central chest pain and will redosed with fentanyl 50 g and a GI cocktail. 2127: On reevaluation the patient's pain is a 3/10 and she is ready to go home. Patient does not want to stay to obtain a CT scan of the chest is comfortable being discharged with follow-up with her PCP. MDM: After reviewing the chart, CC/HPI/PMH, physical exam, [lab results], [ radiological results], I do not believe the patient having acute VT (HEART score =0), PE, and have low suspicion for acute thoracic aortic dissection. On reexamination the patient's chest pain is improved and she is wanted to go home. Recommended short-term follow-up with PCP in the next one to 2 days. I believe the patient is low cardiac risk and can be discharged home with outpatient cardiac workup. Patient showing no signs of worsening of her allergic reaction or signs of anaphylaxis at this time. Recommended patient continue taking her prednisone as previously prescribed. Patient does have a UTI on her UA and will go ahead and treat her for it however do not believe this is causing her chest pain. Additional verbal discharge instructions were provided to the patient and that if symptoms get worse or any new symptoms arise that are worrisome to the patient she is to return to the emergency room immediately [] Dragon Disclaimer Dragon Disclaimer This electronic medical record was generated, in whole or in part, using a voice recognition dictation system. Departure Departure Impression: Primary Impression: Chest pain Additional Impression: UTI (urinary tract infection) Disposition: 01 HOME, SELF-CARE Condition: IMPROVED Referrals: FAUSTINO LIANG APRN (PCP) Patient Instructions: Chest Pain (Nonspecific)-Brief, Urinary Tract Infection, [id number] Additional Instructions: Please follow up with your family physician in the next one to 2 days and return if symptoms increase Scripts Sulfamethoxazole/Trimethoprim (BACTRIM DS TABLET) 1 Each Tablet 1 TAB PO BID for 5 Days, #10 TAB Prov: MIGUELITO AVILA DO 06/03/17 Problem Qualifiers MIGUELITO AVILA DO Jun 03, 2017 19:35
[2017-06-03 19:55] LABS: BILIRUBIN,URINE MODERATE (NEG); GLUCOSE,URINE NEGATIVE (NEG); NITRITE,URINE POSITIVE (NEG); PH,URINE 5.5; PROTEIN,URINE 100 mg/dL (NEG-TRACE); UROBILINOGEN,URINE 0.2 mg/dL (0.2 mg/dL)
[2017-06-03 19:57] LABS: BASO % 0 % (0-3); EOS % 0 % (0-3); HEMATOCRIT 34.2 % (36.0-47.0); HEMOGLOBIN 11.2 g/dL (12.0-15.5); LYMPH % 13 % (24-48); MEAN CORPUSCULAR HEMOGLOBIN 25 pg (25-35); MEAN CORPUSCULAR HGB CONC 33 g/dL (31-37); MEAN CORPUSCULAR VOLUME 76 fL (79-100); MONO % 6 % (0-9); NEUT % 81 % (31-73); PLATELET COUNT 477 x10^3/uL (140-400); RED BLOOD COUNT 4.52 x10^6/uL (3.50-5.40); RED CELL DISTRIBUTION WIDTH 15.5 % (11.5-14.5)
[2017-06-03 20:07] LABS: CALCIUM 9.6 mg/dL (8.5-10.1); CREATININE 0.7 mg/dL (0.6-1.0); POTASSIUM 4.2 mmol/L (3.5-5.1)
[2017-06-03 20:09] LABS: BACTERIA,URINE MODERATE /HPF (0-FEW); RBC,URINE TNTC /HPF (0-2); SQUAMOUS EPITHELIAL CELL,UR FEW /LPF
[2017-06-03 20:13] LABS: ALBUMIN 3.9 g/dL (3.4-5.0); TOTAL BILIRUBIN 0.1 mg/dL (0.2-1.0); TOTAL PROTEIN 7.8 g/dL (6.4-8.2)
[2017-06-03 20:25] VITALS: BP 117/86
[2017-06-03] MEDS ORDERED: fentaNYL PF VIAL 100 MCG/2 ML VIAL IV ONE (20:45)
[2017-06-03] MEDS ORDERED: LIDO:MAALOX:DONNATAL 1:1:1 15 ML SINGLE DOSE SWSW ONE (20:45)
[2017-06-03] MEDS ORDERED: SULF1TAB24 PO (21:43)
--- NOTE | 2017-06-04 06:24 | EKG ---
[facility] [address] [place] [address] Test Date: 2017-06-03 Test Time: 18:39:44 Pat Name: DARREL GRANDE Department: Room: Gender: F Office Machine Technician: : 1985 Requested By: MIGUELITO AVILA Order Number: [id number] Reading MD: Measurements Intervals [place] Rate: 84 P: 27 AR: 142 QRS: 6 QRSD: 90 T: 5 QT: 350 QTc: 417 Interpretive Statements SINUS RHYTHM QRS(T) CONTOUR ABNORMALITY CONSIDER ANTEROSEPTAL MYOCARDIAL DAMAGE RI6.01 Unconfirmed report No previous ECG available for comparison
--- NOTE | 2017-06-04 08:15 | RAD ---
2 views of the Chest 06/03/2017 9:28 PM Indication: Chest pain Comparison: None Findings: There is no focal consolidation or infiltrate identified. There is no effusion or pneumothorax. The cardiomediastinal silhouette and pulmonary vasculature are within normal limits. No osseous abnormality is identified. Calcified granuloma in the right lung base is stable. Impression: No evidence of acute cardiopulmonary process.
== END 2017-06-03 21:47 | disposition home or self-care (01) ==
LOC: ER 18:26
DX: R07.89 Other chest pain (principal); N39.0 Urinary tract infection, site not specified; G43.909 Migraine, unspecified, not intractable, without status migrainosus; Z90.49 Acquired absence of other specified parts of digestive tract; Z98.51 Tubal ligation status; Z98.890 Other specified postprocedural states; Z90.722 Acquired absence of ovaries, bilateral; Z88.0 Allergy status to penicillin; Z88.1 Allergy status to other antibiotic agents; Z88.8 Allergy status to other drugs, medicaments and biological substances
CPT/HCPCS: 36415; 71020; 80053; 81001; 81025; 84484; 85025; 85379; 87086; 93005; 96374; 96375; 99285; J1885; J3010

== ENCOUNTER 2018-01-20 17:19 | Inpatient (IN) | payer SELFPAY ==
[2018-01-20] MEDS: LIDO:MAALOX 1:1 20 ML SINGLE DOSE. SWSW (18:00)
[2018-01-20 18:36] LABS: ADD MAN DIFF? NO
[2018-01-20 18:37] LABS: BASO % 1 % (0-3); EOS % 1 % (0-3); HEMATOCRIT 23.5 % (36.0-47.0); HEMOGLOBIN 7.9 g/dL (12.0-15.5); LYMPH # 1.2 x10^3/uL (1.0-4.8); LYMPH % 19 % (24-48); MEAN CORPUSCULAR HEMOGLOBIN 24 pg (25-35); MEAN CORPUSCULAR HGB CONC 34 g/dL (31-37); MEAN CORPUSCULAR VOLUME 72 fL (79-100); MONO # 0.5 x10^3/uL (0.0-1.1); MONO % 8 % (0-9); NEUT # 4.8 x10^3uL (1.8-7.7); NEUT % 72 % (31-73); PLATELET COUNT 356 x10^3/uL (140-400); RED BLOOD COUNT 3.28 x10^6/uL (3.50-5.40); RED CELL DISTRIBUTION WIDTH 15.6 % (11.5-14.5); WHITE BLOOD COUNT 6.6 x10^3/uL (4.0-11.0)
[2018-01-20 18:39] LABS: BILIRUBIN,URINE SMALL (NEG); CLARITY,URINE CLEAR; GLUCOSE,URINE NEGATIVE (NEG); NITRITE,URINE NEGATIVE (NEG); PROTEIN,URINE NEGATIVE (NEG-TRACE)
[2018-01-20 18:48] LABS: ANION GAP 13 (6-14); BLOOD UREA NITROGEN 5 mg/dL (7-20); BUN/CREATININE RATIO 10 (6-20); CARBON DIOXIDE 21 mmol/L (21-32); CHLORIDE 102 mmol/L (98-107); CREATININE 0.5 mg/dL (0.6-1.0); GFR 142.1; GLUCOSE 84 mg/dL (70-99); POTASSIUM 3.8 mmol/L (3.5-5.1); SODIUM 136 mmol/L (136-145)
[2018-01-20 18:54] LABS: ALBUMIN 3.1 g/dL (3.4-5.0); ALBUMIN/GLOBULIN RATIO 0.9 (1.0-1.7); ALK PHOS 97 U/L (46-116); ALT (SGPT) 24 U/L (14-59); AST (SGOT) 197 U/L (15-37); LIPASE 118 U/L (73-393); TOTAL BILIRUBIN 0.4 mg/dL (0.2-1.0); TOTAL PROTEIN 6.5 g/dL (6.4-8.2)
[2018-01-20 18:55] LABS: TROPONINI < 0.017 ng/mL (0.000-0.055)
[2018-01-20 18:55] LABS: COLOR,URINE DK YELLOW
[2018-01-20 18:57] LABS: BACTERIA,URINE MODERATE /HPF (0-FEW); RBC,URINE 0 /HPF (0-2); SQUAMOUS EPITHELIAL CELL,UR MOD /LPF
[2018-01-20 19:05] LABS: CKMB MASS < 0.5 ng/mL (0.0-3.6); CREATINE KINASE 20 U/L (26-192)
[2018-01-20 19:05] LABS: NT-PRO BNP 89 pg/mL (0-124)
[2018-01-20 19:08] LABS: ANISOCYTOSIS SLIGHT; HYPOCHROMIA SLIGHT; MICROCYTOSIS MOD; PLT ESTIMATE ADEQUATE (ADEQUATE); POIKILOCYTOSIS SLIGHT
[2018-01-20 19:49] LABS: D-DIMER 0.59 ug/mlFEU (0.00-0.50)
[2018-01-20] MEDS: ONDANSETRON PF 4 MG/2 ML VIAL. IV (20:22)
[2018-01-20] MEDS ORDERED: IOHEXOL 300 MG/ML 100ML VIAL. IV (20:30)
[2018-01-20] MEDS ORDERED: CONTRAST GIVEN. MC (20:30)
[2018-01-21] MEDS: IV RINGERS,LACTATED 1000ML 1,000 ML IV ×3 (00:30→12:37)
[2018-01-21] MEDS: ACETAMINOPHEN 500 MG TABLET PO ×3 (00:38→13:08)
[2018-01-21 04:29] LABS: ADD MAN DIFF? NO
[2018-01-21 04:40] LABS: BASO % 0 % (0-3); EOS # 0.1 x10^3/uL (0.0-0.7); EOS % 1 % (0-3); HEMATOCRIT 21.7 % (36.0-47.0); HEMOGLOBIN 7.1 g/dL (12.0-15.5); LYMPH # 1.2 x10^3/uL (1.0-4.8); LYMPH % 26 % (24-48); MEAN CORPUSCULAR HEMOGLOBIN 24 pg (25-35); MEAN CORPUSCULAR HGB CONC 33 g/dL (31-37); MEAN CORPUSCULAR VOLUME 72 fL (79-100); MONO # 0.4 x10^3/uL (0.0-1.1); MONO % 9 % (0-9); NEUT % 64 % (31-73); PLATELET COUNT 295 x10^3/uL (140-400); RED BLOOD COUNT 3.01 x10^6/uL (3.50-5.40); RED CELL DISTRIBUTION WIDTH 15.3 % (11.5-14.5); WHITE BLOOD COUNT 4.7 x10^3/uL (4.0-11.0)
[2018-01-21 05:35] LABS: ALBUMIN 2.6 g/dL (3.4-5.0); ALBUMIN/GLOBULIN RATIO 0.7 (1.0-1.7); ALK PHOS 82 U/L (46-116); ALT (SGPT) 23 U/L (14-59); ANION GAP 13 (6-14); AST (SGOT) 18 U/L (15-37); BLOOD UREA NITROGEN 3 mg/dL (7-20); BUN/CREATININE RATIO 6 (6-20); CALCIUM 8.7 mg/dL (8.5-10.1); CARBON DIOXIDE 20 mmol/L (21-32); CHLORIDE 103 mmol/L (98-107); CREATININE 0.5 mg/dL (0.6-1.0); GFR 142.1; GLUCOSE 80 mg/dL (70-99); POTASSIUM 3.7 mmol/L (3.5-5.1); SODIUM 136 mmol/L (136-145); TOTAL BILIRUBIN 0.4 mg/dL (0.2-1.0); TOTAL PROTEIN 6.1 g/dL (6.4-8.2)
[2018-01-21] MEDS: ONDANSETRON PF 4 MG/2 ML VIAL. IV ×2 (06:28→21:37)
[2018-01-21] MEDS: PANTOPRAZOLE IV PUSH 40 MG VIAL. IVP (07:47)
[2018-01-21] MEDS: SERTRALINE 25 MG TABLET. PO (21:37)
[2018-01-21] MEDS: diphenhydrAMINE HCL 25 MG CAPSULE PO (21:37)
[2018-01-22] MEDS: ONDANSETRON PF 4 MG/2 ML VIAL. IV (05:48)
[2018-01-22] MEDS ORDERED: IV RINGERS,LACTATED 1000ML 1,000 ML IV (06:00)
[2018-01-22] MEDS: ACETAMINOPHEN 500 MG TABLET PO (09:36)
== END 2018-01-22 13:00 | disposition home or self-care (01) | DRG 781 ==
LOC: ER 17:19 → 3 SO LND 23:00
DX: O99.612 Diseases of the digestive system complicating pregnancy, second trimester (principal); F41.9 Anxiety disorder, unspecified; F32.9 Major depressive disorder, single episode, unspecified; G43.909 Migraine, unspecified, not intractable, without status migrainosus; G47.00 Insomnia, unspecified; O34.219 Maternal care for unspecified type scar from previous cesarean delivery; E86.0 Dehydration; O99.282 Endocrine, nutritional and metabolic diseases complicating pregnancy, second trimester; Z3A.24 24 weeks gestation of pregnancy; O99.342 Other mental disorders complicating pregnancy, second trimester; K21.9 Gastro-esophageal reflux disease without esophagitis; Z88.1 Allergy status to other antibiotic agents; Z88.0 Allergy status to penicillin; Z88.8 Allergy status to other drugs, medicaments and biological substances
CPT/HCPCS: 36415; 71045; 71275; 76805; 80053; 81001; 82553; 83690; 83880; 84484; 85025; 85379; 87086; 93005; 96361; 96374; 96375; 99285-25; C9113; G0378; G0379; J2405; J7120; Q0163

== ENCOUNTER 2018-02-03 18:06 | Observation (INO) | payer SELFPAY ==
[2018-02-03 19:20] LABS: BILIRUBIN,URINE NEGATIVE (NEG); CLARITY,URINE CLOUDY; COLOR,URINE YELLOW; GLUCOSE,URINE NEGATIVE (NEG); NITRITE,URINE NEGATIVE (NEG); PH,URINE 6.5; PROTEIN,URINE NEGATIVE (NEG-TRACE)
[2018-02-03] MEDS ORDERED: IV RINGERS,LACTATED 500ML 500 ML IV (19:30)
[2018-02-03 19:50] LABS: AMORPHOUS SEDIMENT,UR PRESENT /HPF; BACTERIA,URINE MODERATE /HPF (0-FEW); SQUAMOUS EPITHELIAL CELL,UR FEW /LPF
[2018-02-03] MEDS: IV RINGERS,LACTATED 1000ML 1,000 ML IV ×2 (20:29→21:23)
[2018-02-03 20:37] LABS: ADD MAN DIFF? NO
[2018-02-03 20:39] LABS: BASO % 0 % (0-3); EOS # 0.1 x10^3/uL (0.0-0.7); EOS % 1 % (0-3); HEMATOCRIT 25.3 % (36.0-47.0); HEMOGLOBIN 8.3 g/dL (12.0-15.5); LYMPH # 1.2 x10^3/uL (1.0-4.8); LYMPH % 20 % (24-48); MEAN CORPUSCULAR HEMOGLOBIN 23 pg (25-35); MEAN CORPUSCULAR HGB CONC 33 g/dL (31-37); MEAN CORPUSCULAR VOLUME 71 fL (79-100); MONO # 0.5 x10^3/uL (0.0-1.1); MONO % 8 % (0-9); NEUT % 70 % (31-73); PLATELET COUNT 379 x10^3/uL (140-400); RED BLOOD COUNT 3.56 x10^6/uL (3.50-5.40); RED CELL DISTRIBUTION WIDTH 15.6 % (11.5-14.5); WHITE BLOOD COUNT 5.7 x10^3/uL (4.0-11.0)
[2018-02-03 20:56] LABS: ALBUMIN/GLOBULIN RATIO 0.7 (1.0-1.7); ALK PHOS 101 U/L (46-116); ALT (SGPT) 27 U/L (14-59); ANION GAP 9 (6-14); AST (SGOT) 15 U/L (15-37); BLOOD UREA NITROGEN 6 mg/dL (7-20); BUN/CREATININE RATIO 12 (6-20); CALCIUM 9.4 mg/dL (8.5-10.1); CARBON DIOXIDE 25 mmol/L (21-32); CHLORIDE 102 mmol/L (98-107); CREATININE 0.5 mg/dL (0.6-1.0); GFR 142.1; GLUCOSE 86 mg/dL (70-99); POTASSIUM 3.7 mmol/L (3.5-5.1); SODIUM 136 mmol/L (136-145); TOTAL BILIRUBIN 0.4 mg/dL (0.2-1.0); TOTAL PROTEIN 7.2 g/dL (6.4-8.2)
[2018-02-03] MEDS: ACETAMINOPHEN 500 MG TABLET PO (20:59)
[2018-02-03 21:42] LABS: PLT ESTIMATE ADEQUATE (ADEQUATE)
[2018-02-03 21:44] LABS: ANISOCYTOSIS MOD; HYPOCHROMIA SLIGHT; MICROCYTOSIS MOD
== END 2018-02-03 22:44 | disposition home or self-care (01) ==
LOC: 3 SO LND 18:06
DX: O26.893 Other specified pregnancy related conditions, third trimester (principal); R19.7 Diarrhea, unspecified; Z3A.28 28 weeks gestation of pregnancy
CPT/HCPCS: 36415; 80053; 81001; 85025; 87086; 96360; 96361; G0378; G0379; J7120

== ENCOUNTER 2018-02-09 10:50 | Observation (INO) | payer OTHER ==
[2018-02-09] MEDS ORDERED: IV RINGERS,LACTATED 1000ML 1,000 ML IV (11:36)
[2018-02-09 11:51] LABS: BILIRUBIN,URINE NEGATIVE (NEG); CLARITY,URINE CLEAR; COLOR,URINE YELLOW; GLUCOSE,URINE NEGATIVE (NEG); NITRITE,URINE NEGATIVE (NEG); PH,URINE 6.5; PROTEIN,URINE NEGATIVE (NEG-TRACE); UROBILINOGEN,URINE 0.2 mg/dL (0.2 mg/dL)
[2018-02-09 12:14] LABS: BACTERIA,URINE MANY /HPF (0-FEW); RBC,URINE OCC /HPF (0-2); SQUAMOUS EPITHELIAL CELL,UR MANY /LPF
== END 2018-02-09 12:35 | disposition home or self-care (01) ==
LOC: 3 SO LND 10:50
DX: O26.893 Other specified pregnancy related conditions, third trimester (principal); N89.8 Other specified noninflammatory disorders of vagina; Z3A.29 29 weeks gestation of pregnancy
CPT/HCPCS: 81001; 87086; G0378; G0379

== ENCOUNTER 2018-02-18 23:25 | Observation (INO) | payer OTHER ==
[2018-02-18] MEDS ORDERED: IV RINGERS,LACTATED 1000ML 1,000 ML IV (23:26)
[2018-02-19 01:16] LABS: BILIRUBIN,URINE NEGATIVE (NEG); CLARITY,URINE CLEAR; COLOR,URINE YELLOW; GLUCOSE,URINE NEGATIVE (NEG); NITRITE,URINE NEGATIVE (NEG); PH,URINE 6.5; PROTEIN,URINE NEGATIVE (NEG-TRACE)
[2018-02-19 01:22] LABS: BARBITURATES NEG (NEG); BENZODIAZEPINES NEG (NEG); CANNABINOIDS NEG (NEG); COCAINE NEG (NEG); METHADONE NEG (NEG); OPIATES NEG (NEG); PHENCYCLIDINE NEG (NEG)
[2018-02-19 01:28] LABS: BACTERIA,URINE MODERATE /HPF (0-FEW); RBC,URINE OCC /HPF (0-2); SQUAMOUS EPITHELIAL CELL,UR FEW /LPF
[2018-02-19 01:29] LABS: AMPHETAMINE/METHAMPHETAMINE NEG (NEG); ETHANOL, URINE NEG (NEG)
== END 2018-02-19 02:10 | disposition home or self-care (01) ==
LOC: 3 SO LND 23:25
DX: O26.893 Other specified pregnancy related conditions, third trimester (principal); R10.11 Right upper quadrant pain; Z79.899 Other long term (current) drug therapy; Z3A.30 30 weeks gestation of pregnancy
CPT/HCPCS: 80307; 81001; 87086; G0378; G0379

== ENCOUNTER 2019-09-18 10:53 | Emergency (ER) | payer SELFPAY ==
[~2019-09-18] VITALS: Ht 160 cm; Wt 95.0 kg
[~2019-09-18 10:53] MED LIST changes: +GABA-689 PO; -GABA400C PO; +MECL-75 PO; -MECL25TA3 PO; +NAPR-514 PO; -NAPR500T4 PO; -PROM12.56 PO; +PROM12.58 PO; +SULF1TAB24 PO; +TRAM50TA PO
[2019-09-18 11:00] VITALS: BP 155/85
[2019-09-18] MEDS ORDERED: NEOMY/BACITR/POLYMYXIN OINT PACKET. TP ONE (11:45)
--- NOTE | 2019-09-18 11:57 | PHYS DOC ---
Past Medical History Past Medical History: Anxiety, Depression, Endometriosis, Migraines Additional Past Medical Histor: "very mild case of CP", insomnia Past Surgical History: , Oophorectomy, Tubal ligation, Other Additional Past Surgical Histo: extensions of heal cords, lap. for endometriosis, L. ovary/tube removal, Alcohol Use: None Drug Use: None Adult General Chief Complaint Chief Complaint: WRIST PAIN HPI HPI Patient is a 34 year old female who presents with dizziness walking up some cement stairs today with her hands full of food and tripped up stairs. She comes in complaining of right hand and wrist pain. She states her tetanus was 4-5 years ago. Patient rates her pain 9 out of 10. Review of Systems Review of Systems Musculoskeletal: Denies back pain. Right hand and wrist joint pain [] Integument: Right dorsal Abrasion. Denies rash or skin lesions [] All other systems were reviewed and found to be within normal limits, except as documented in this note. Current Medications Current Medications Current Medications Medications (Trade) Dose Ordered Sig/[facility] Start Time Stop Time Status Last Admin Dose Admin Neomycin/ Polymyxin/ Bacitracin (Triple Antibiotic Ointment) 1 pkt 1X ONCE 09/18/19 11:45 09/18/19 11:46 DC Allergies Allergies Allergies Coded Allergies Type Severity Reaction Last Updated Verified duloxetine Allergy Severe shortness of breath and chest tightness 06/19/17 Yes Penicillins Allergy Intermediate hives 06/09/15 Yes Sulfa (Sulfonamide Antibiotics) Allergy Intermediate 09/18/19 Yes azithromycin Allergy Intermediate hives 06/09/15 Yes lavender (Lavandula angustifolia) Allergy Intermediate sob 06/09/15 Yes progesterone Adverse Reaction Intermediate nausea and vomiting 06/09/15 Yes Physical Exam Physical Exam Constitutional: Well developed, well nourished, no acute distress, non-toxic appearance. [] HENT: Normocephalic, atraumatic, bilateral external ears normal, oropharynx moist, no oral exudates, nose normal. [] Eyes: PERRLA, EOMI, conjunctiva normal, no discharge. [] Neck: Normal range of motion, no tenderness, supple, no stridor. [] Cardiovascular:Heart rate regular rhythm, no murmur [] Lungs & Thorax: Bilateral breath sounds clear to auscultation [] Abdomen: Bowel sounds normal, soft, no tenderness, no masses, no pulsatile masses. [] Skin: Right dorsal hand abrasion. Warm, dry, no erythema, no rash. [] Back: No tenderness, no CVA tenderness. [] Extremities: Right dorsal hand and lateral wrist tenderness, no cyanosis, no clubbing, Right wrist limited ROM intact, 1+ edema. [] Neurologic: Alert and oriented X 3, normal motor function, normal sensory function, no focal deficits noted. [] Psychologic: Affect normal, judgement normal, mood normal. [] Current Patient Data Vital Signs Vital Signs Date Time Temp Pulse Resp B/P (MAP) Pulse Ox O2 Delivery O2 Flow Rate FiO2 09/18/19 11:00 98.6 91 16 155/85 (108) 97 Room Air 98.6 EKG EKG [] Radiology/Procedures Radiology/Procedures [] Impressions: [facility] [address] [place] [address] IMAGING REPORT Signed PATIENT: DARREL GRANDE ACCOUNT: [id number] : 1985 LOCATION: ER AGE: 34 SEX: F EXAM STATUS: REG ER ORD. PHYSICIAN: BARRIE PLAZA APRN REASON: fall up the stairs this AM. pain and swelling to left hand/wrist PROCEDURE: HAND LEFT 3V EXAM: Left hand, 3 views; left wrist, 3 views. HISTORY: Fall. Pain. COMPARISON: None. FINDINGS: 3 views of the left hand and wrist are obtained. No displaced fracture is seen. There is no radiodense foreign body. IMPRESSION: No acute osseous finding. Electronically signed by: Shanita Cabrera MD (09/18/2019 11:54 AM) [facility] DICTATED and SIGNED BY: SHANITA CABRERA MD DATE: 09/18/19 0933 Course & Med Decision Making Course & Med Decision Making Dorsal hand with a abrasion and 1+ swelling. No bruising or deformities seen. Tenderness to the dorsal hand. No tenderness to the fingers. Full range of motion of the fingers and can wiggle all fingers and make a fist but is very painful. Cap refill less than 3 seconds. Radial pulses strong and present. Skin pink warm and dry. No laxity any joints. Lateral wrist pain with palpation. No deformity or bruising to the wrist and range of motion is limited only due to pain. Alert and oriented. Ambulatory with a steady gait. PERRLA. Denies any numbness or tingling. Patient denies hitting her head or having neck pain or back pain. No acute findings on x-ray. Patient's given an Jas wrap and follow up with orthopedic if needed. Dragon Disclaimer Dragon Disclaimer This electronic medical record was generated, in whole or in part, using a voice recognition dictation system. Departure Departure Impression: Primary Impression: Right wrist pain Additional Impression: Right hand pain Disposition: HOME, SELF-CARE Condition: STABLE Referrals: FAUSTINO LIANG APRN (PCP) MYLENE LEE II, MD Patient Instructions: Contusion, Wrist Sprain with Rehab-Sports[facility] Additional Instructions: Follow up with primary care provider. Take medication as prescribed. Use Ice to help with swelling. Scripts Ibuprofen (IBUPROFEN) 600 Mg Tablet 600 MG PO PRN Q6HRS PRN for INFLAMMATION, #20 TAB Prov: BARRIE PLAZA APRN 09/18/19 Problem Qualifiers BARRIE PLAZA APRN Sep 18, 2019 11:57
[2019-09-18] MEDS ORDERED: IBUP-1007 PO (12:29)
== END 2019-09-18 12:43 | disposition home or self-care (01) ==
LOC: ER 10:53
DX: M25.532 Pain in left wrist (principal); M79.642 Pain in left hand; R42 Dizziness and giddiness; R60.9 Edema, unspecified; L53.9 Erythematous condition, unspecified; F41.9 Anxiety disorder, unspecified; F32.9 Major depressive disorder, single episode, unspecified; G43.909 Migraine, unspecified, not intractable, without status migrainosus; N80.9 Endometriosis, unspecified; Z90.89 Acquired absence of other organs; Z98.51 Tubal ligation status; Z98.890 Other specified postprocedural states; Z88.0 Allergy status to penicillin; Z88.2 Allergy status to sulfonamides; Z88.1 Allergy status to other antibiotic agents; Z88.8 Allergy status to other drugs, medicaments and biological substances; Z91.048 Other nonmedicinal substance allergy status
CPT/HCPCS: 73110; 73130; 99284

== ENCOUNTER 2021-07-16 16:24 | Emergency (ER) | payer OTHER ==
[~2021-07-16] VITALS: Ht 160 cm; Wt 110.0 kg
[~2021-07-16 16:24] MED LIST changes: +CYCL10TA19 PO; -CYCL10TA2 PO; +IBUP-1007 PO; +SUMA1TAB12 PO; -SUMA1TAB2 PO
--- NOTE | 2021-07-16 19:08 | PHYS DOC ---
Past Medical History Past Medical History: Anxiety, Bronchitis, Depression, Endometriosis, Migraines Additional Past Medical Histor: "very mild case of CP", insomnia, RT KNEE TEAR REPAIR (JAYLA AGUILAR NEWSPAPER COLUMNIST) Past Surgical History: , Oophorectomy, Tubal ligation, Other Additional Past Surgical Histo: extensions of heal cords, lap. for endometriosis, L. ovary/tube removal, (JAYLA AGUILAR NEWSPAPER COLUMNIST) Smoking Status: Never Smoker Alcohol Use: Occasionally Drug Use: None (JAYLA AGUILAR APRN) General Adult EDM: Chief Complaint: SHORTNESS OF BREATH HPI: HPI: Patient is a 36 year old female with a history of depression, anxiety, bronchitis, presenting to the ED today complaining of a dry cough, sore throat, shortness of breath, symptoms began 1-1/2 weeks ago. Patient denies any chest pain, denies any fever. She states she is currently on cephalexin which was started on 07/09/2021 by the PCP. (JAYLA AGUILAR NEWSPAPER COLUMNIST) Review of Systems: Review of Systems: Constitutional: Denies fever or chills. [] Eyes: Denies change in visual acuity. [] HENT: Reports sore throat, denies nasal congestion Respiratory: Reports cough and shortness of breath. [] Cardiovascular: Denies chest pain or edema. [] GI: Denies abdominal pain, nausea, vomiting, bloody stools or diarrhea. [] : Denies dysuria. [] Musculoskeletal: Denies back pain or joint pain. [] Integument: Denies rash. [] Neurologic: Denies headache, focal weakness or sensory changes. [] Psychiatric: Denies depression or anxiety. [] (JYALA AGUILAR NEWSPAPER COLUMNIST) Heart Score: C/O Chest Pain: N/A Risk Factors: Risk Factors: DM, Current or recent (<one month) smoker, HTN, HLP, family history of CAD, obesity. Risk Scores: Score 0 - 3: 2.5% MACE over next 6 weeks - Discharge Home Score 4 - 6: 20.3% MACE over next 6 weeks - Admit for Clinical Observation Score 7 - 10: 72.7% MACE over next 6 weeks - Early Invasive Strategies (JAYLA AGUILAR NEWSPAPER COLUMNIST) Allergies: Allergies: Allergies Coded Allergies Type Severity Reaction Last Updated Verified duloxetine Allergy Severe shortness of breath and chest tightness 06/19/17 Yes Penicillins Allergy Intermediate hives 06/09/15 Yes Sulfa (Sulfonamide Antibiotics) Allergy Intermediate 09/18/19 Yes azithromycin Allergy Intermediate hives 06/09/15 Yes lavender (Lavandula angustifolia) Allergy Intermediate sob 06/09/15 Yes progesterone Adverse Reaction Intermediate nausea and vomiting 06/09/15 Yes (JAYLA AGUILAR NEWSPAPER COLUMNIST) Physical Exam: PE: Constitutional: Well developed, well nourished, no acute distress, non-toxic appearance. [] HENT: Normocephalic, atraumatic, bilateral external ears normal, oropharynx mois t, no oral exudates, nose normal. [] Eyes: PERRLA, EOMI, conjunctiva normal, no discharge. [] Neck: Normal range of motion, no tenderness, supple, no stridor. [] Cardiovascular:Heart rate regular rhythm, no murmur [] Lungs & Thorax: Bilateral breath sounds clear to auscultation [] Abdomen: Bowel sounds normal, soft, no tenderness, no masses, no pulsatile masses. [] Skin: Warm, dry, no erythema, no rash. [] Back: No tenderness, no CVA tenderness. [] Extremities: No tenderness, no cyanosis, no clubbing, ROM intact, no edema. [] Neurologic: Alert and oriented X 3, normal motor function, normal sensory function, no focal deficits noted. [] Psychologic: Affect normal, judgement normal, mood normal. [] (JAYLA AGUILAR NEWSPAPER COLUMNIST) Current Patient Data: Vital Signs: Vital Signs Date Time Temp Pulse Resp B/P (MAP) Pulse Ox O2 Delivery O2 Flow Rate FiO2 07/16/21 18:06 98.6 94 16 154/103 (120) 99 Room Air 98.6 (JAYLA AGUILAR NEWSPAPER COLUMNIST) EKG: EKG: [] (JAYLA AGUILAR NEWSPAPER COLUMNIST) Radiology/Procedures: Radiology/Procedures: []PROCEDURE: CHEST AP ONLY XR CHEST 1V INDICATION: cough . COMPARISON STUDY: 01/20/2018. FINDINGS: Lungs: Normal lung volume. No pulmonary mass or consolidation. The tracheobronchial tree and hilar structures are normal. Pleura: No pleural effusion or pneumothorax. Heart and Mediastinum: The cardiomediastinal silhouette is normal. The great vessels of the thorax are normal. IMPRESSION: No consolidation. Electronically signed by: Winter Morin MD (07/16/2021 7:32 PM) [facility] DICTATED and SIGNED BY: WINTER MORIN MD DATE: 07/16/21 [id number] 0 (JAYLA AGUILAR APRN) Course & Med Decision Making: Course & Med Decision Making Pertinent Labs and Imaging studies reviewed. (See chart for details) This is a 36-year-old female patient presenting to the ED today complaining of sore throat, cough and shortness of breath, symptoms of been going on for 1-1/2 weeks. She is currently on cephalexin which was started on July 09, 2021 by the PCP. Patient is afebrile with a temperature of 98.6, O2 sats 99% on room air. Chest x-ray negative for any acute findings, negative rapid Covid test, negative influenza a and B. Discharged to home on prednisone, albuterol inhaler and Tessalon Perles. Tylenol or Motrin for pain or fever. Follow-up with PCP in 1 week (JAYLA AGUILAR APRN) Course & Med Decision Making Patients Care and treatment plan provided by ER Nurse Practitioner. I was available for consult. Patient's chart reviewed. (MARQUES ARREOLA DO) Tony Disclaimer: Tony Disclaimer: This electronic medical record was generated, in whole or in part, using a voice recognition dictation system. (JAYLA AGUILAR APRN) Departure Departure Impression: Primary Impression: Bronchitis Additional Impression: Acute pharyngitis Qualified Codes: J02.9 - Acute pharyngitis, unspecified Disposition: HOME / SELF CARE / HOMELESS Condition: GOOD Referrals: FAUSTINO LIANG APRN (PCP) Follow-up in the course of this week or next week Patient Instructions: Acute Bronchitis, Viral Pharyngitis Additional Instructions: You were evaluated in the emergency room, your rapid Covid test is negative, your chest x-ray is negative for any acute findings, your rapid influenza a and B and negative. Please take the prescribed medications as ordered. Follow-up with your own doctor in the course of this week or next week Scripts Prednisone (PREDNISONE) 50 Mg Tablet 1 TAB PO DAILY, #5 TAB Prov: JAYLA AGUILAR APRN 07/16/21 Benzonatate (BENZONATATE) 100 Mg Capsule 1 CAP PO TID, #30 CAP Prov: JAYLA AGUILAR APRN 07/16/21 Albuterol Sulfate (Proair Hfa) 8.5 Gm Hfa.aer.ad 2 PUFF IH PRN Q4-6HRS PRN for wheezing for 21 Days, #1 INHALER 0 Refills Prov: JAYLA AGUILAR APRN 07/16/21 JAYLA AGUILAR APRN Jul 16, 2021 19:08 MARQUES ARREOLA DO Jul 18, 2021 03:34
--- NOTE | 2021-07-16 19:34 | RAD ---
XR CHEST 1V INDICATION: cough . COMPARISON STUDY: 01/20/2018. FINDINGS: Lungs: Normal lung volume. No pulmonary mass or consolidation. The tracheobronchial tree and hilar st ructures are normal. Pleura: No pleural effusion or pneumothorax. Heart and Mediastinum: The cardiomediastinal silhouette is normal. The great vessels of the thorax ar e normal. IMPRESSION: No consolidation. Electronically signed by: Gomez Morin MD (07/16/2021 7:32 PM) [facility]
[2021-07-16 20:52] LABS: INFLUENZA A PATIENT NEGATIVE (NEGATIVE); INFLUENZA B PATIENT NEGATIVE (NEGATIVE)
[2021-07-16] MEDS ORDERED: ALBU2.5V8 IH (21:03)
[2021-07-16] MEDS ORDERED: PRED50TA PO (21:03)
[2021-07-16] MEDS ORDERED: BENZ-8 PO (21:03)
[2021-07-16 21:12] VITALS: BP 143/82
--- NOTE | 2021-07-17 17:24 | NUR ---
IP: Informed pt of negative covid test. Pt verbalized understanding.
== END 2021-07-16 21:38 | disposition home or self-care (01) ==
LOC: ER 16:24
DX: J40 Bronchitis, not specified as acute or chronic (principal); Z20.822 Contact with and (suspected) exposure to COVID-19; J02.9 Acute pharyngitis, unspecified; G43.909 Migraine, unspecified, not intractable, without status migrainosus; Z88.0 Allergy status to penicillin; Z88.2 Allergy status to sulfonamides; Z88.1 Allergy status to other antibiotic agents; Z88.8 Allergy status to other drugs, medicaments and biological substances
CPT/HCPCS: 71045; 87426; 87804; 99285; U0003; U0005

== ENCOUNTER → 2021-10-03 | Outpatient (CLI) | payer OTHER ==
[~2021-10-03] MED LIST changes: +ALBU2.5V8 IH; +BENZ-8 PO; +PRED50TA PO
--- NOTE | 2021-10-03 15:20 | KCIC ---
EXAMINATION: Thyroid sonogram. INDICATION: Thyroid enlargement.. COMPARISON: None. Technique: Real-time grayscale and color Doppler imaging of the thyroid gland was performed per moraima col. Findings: The right thyroid lobe measures: 4.1 x 1.8 x 1.5 cm. The left thyroid lobe measures: 4.2 x 1.4 x 0.8 cm. The isthmus measures: 0.35 cm. The thyroid parenchyma is heterogeneous. There is a 3 mm benign cyst within the mid inferior right th yroid lobe. There is a single measurable thyroid nodule, described below. Nodule #1: Maximum size: 8 mm Location: Inferior left thyroid lobe. Composition: Solid or almost completely solid (2 points) Echogenicity: Hyperechoic or isoechoic (1 point) Shape: [id number] (0 points) Margins: Smooth (0 points) Echogenic foci: None or large comet-tail artifacts (0 points) ACR TI-RADS total points: 3. ACR TI-RADS risk category: TR3 (3 points) - Mildly suspicious. FNA if ?2.5 cm. Follow if ?1.5 cm. IMPRESSION: 1. 8 mm inferior left thyroid nodule. TI-RADS Category 3. Sonographic follow-up is not typically perf ormed for category 3 nodules of this size, likely due to performed if there is clinical concern. 2. Tiny right thyroid cyst. 3. Heterogeneous thyroid parenchyma. This can be seen as a sequela of thyroiditis. 4. Normal thyroid size. ACR TI-RADS recommendations TR5 (?7 points) - FNA if ? 1cm, follow-up if 0.5 - 0.9 cm every year for 5 years TR4 (4-6 points) - FNA if ? 1.5cm, follow-up if 1 - 1.4 cm in 1, 2, 3 and 5 years TR3 (3 points)- FNA if ? 2.5cm, follow-up if 1.5 - 2.4 cm in 1, 3 and 5 years TR2 (2 points) & TR1 (0 points) - No FNA or follow-up *Decision to biopsy should include other considerations such as patient demographics and relevant cli nical information. Reference: TIRADS 2017 J Am Jessica Radiol 2017;14:[id number] Electronically signed by: Shanita Wise MD (10/03/2021 3:17 PM) [id number]
== END ==
LOC: KCIC US 14:34
PROVIDERS: ATTEND Nurse Practitioner Family
DX: E04.1 Nontoxic single thyroid nodule (principal); E04.9 Nontoxic goiter, unspecified
CPT/HCPCS: 76536